=== PATIENT | male | born 1990 | race Caucasian/White ===

== ENCOUNTER 2020-01-20 11:58 | Emergency (ER) | payer OTHER ==
[~2020-01-20] VITALS: Ht 188 cm; Wt 78.0 kg
--- NOTE | ~2020-01-20 | EMS ---
[address] [address] EMS Patient Care Report Name: KAI CAGLE Room #: DEP RUCHI Betancourt#: [id number] Admission: 01/20/20 Attend Phys: Discharge: 01/20/20 Date of : [birth year] Report #: [id number] THIS REPORT FOR: //name// Report Transmitted: 01/23/2020 11:07 EMS Care Summary [place], [place]/[facility] Incident [id number] @ 01/20/2020 11:22 Incident Location [address] [place] [address] Patient KAI CAGLE Male, 29 Years 1990 Patient Address [facility] Patient History None Reported, Patient Allergies No known allergies, Patient Medications None Reported, Chief Complaint hand swelling/pain Disposition Transported No Lights/Blanding Dispatch Reason Overdose/Poisoning/Ingestion Transported To [facility] Narrative S: 29 yo male is complaining of hand discomfort. The gentleman says he noticed his hand start swelling over the past day. He denies any trauma or spider bites to the site. Upon our arrival the pt was alert and oriented x 3, complaining of his hand discomfort. The pt denies any other specific complaints. He denies any history of mental health. He was telling us that the witches are who caused the swelling in his hand. [address] [address] EMS Patient Care Report Name: KAI CAGLE Room #: DEP ER Serafin#: [id number] Admission: 01/20/20 Attend Phys: Discharge: 01/20/20 Date of : [birth year] Report #: [id number] O: gcs- 15, no obvious resp distress noted. Right hand- swelling to posterior hand. Skin to the hand feels hot. no other obvious injury or illness noted. A: hand infection/injury P: vs, pt transported to [facility] without changes. Initial Vitals @11:42P: 101,R: 16,BP: 120/75,Pain: 2/10,GCS: 15,SpO2: 97,Revised Trauma: 12, @11:43P: 92,R: 16,BP: 125/71,Pain: 2/10,GCS: 15,CO: 4,SpO2: 95,Revised Trauma: 12, Assessments @11:36MENTAL:No Abnormalities,SKIN:No Abnormalities,HEENT:Head/Face: No Abnormalities,Eyes: No Abnormalities,Neck/Airway: No Abnormalities,LUNG SOUNDS:General: No Abnormalities,Left Upper: No Abnormalities,Right Upper: No Abnormalities,Left Lower: No Abnormalities,Right Lower: No Abnormalities,ABDOMEN:General: No Abnormalities,Left Upper: No Abnormalities,Right Upper: No Abnormalities,Left Lower: No Abnormalities,Right Lower: No Abnormalities,PELVIS//GI:No Abnormalities,EXTREMITIES:Right Arm: Other,Left Arm: No Abnormalities,Left Leg: No Abnormalities,Right Leg: No Abnormalities,PULSE:Brachial: 2+ Normal,Radial: 2+ Normal,NEURO:No Abnormalities, Impression Extremity Pain Procedures @11:36ALS AssessmentResponse: UnchangedSucceeded Timeline 11:22,Call Received 11:22,Dispatch Notified 11:22,Dispatched 11:23,En Route 11:35,On Scene 11:36,At Patient 11:36,ALS Assessment,Response: UnchangedSucceeded, 11:42,BP: 120/75 M,PULSE: 101,RR: 16 R,SPO2: 97 Ox,ETCO2: ,BG: ,PAIN: 2,GCS: 15, 11:43,BP: 125/71 M,PULSE: 92,RR: 16 R,SPO2: 95 Ox,ETCO2: ,BG: ,PAIN: 2,GCS: 15, 11:46,Depart Scene 11:53,At Destination 12:13,Call Closed Disclaimer [email or web address] Copyright 2020 [employer] This EMS Care Summary contains data elements from the applicable legal record [address] [address] EMS Patient Care Report Name: KAI CAGLE Room #: DEP RUCHI Betancourt#: [id number] Admission: 01/20/20 Attend Phys: Discharge: 01/20/20 Date of : [birth year] Report #: [id number] (which may be displayed differently). It is designed to provide pertinent information for the following purposes: continuity of care, clinical quality, and state data reporting. The complete legal record is available to ED staff and administrators of the receiving hospital in [employer]'s Patient Tracker. All data is provided "as is."
[2020-01-20] MEDS ORDERED: KEFLEX500 M1 PO (12:44)
[2020-01-20 13:18] VITALS: BP 103/64
== END 2020-01-20 13:18 | disposition home or self-care (01) ==
LOC: ER 11:58
DX: L03.113 Cellulitis of right upper limb (principal); F17.210 Nicotine dependence, cigarettes, uncomplicated